=== PATIENT | male | born 1990 | race Caucasian/White ===

== ENCOUNTER 2020-08-31 03:53 | Emergency (ER) | payer MEDICAID, OTHER ==
[2020-08-31] MEDS ORDERED: KETOROLAC TROMETHAMINE INJ 30 MG/ML VIAL IV ONE (04:00)
[2020-08-31] MEDS ORDERED: SODIUM CHLORIDE 0.9% 1000ML 1,000 ML IVS ONE ×2 (04:01→06:00)
[2020-08-31] MEDS ORDERED: PROMETHAZINE HCL INJ 25 MG in SODIUM CHLORIDE 0.9% 50ML 50 ML IVPB ONE (04:01)
[2020-08-31] MEDS ORDERED: MORPHINE SULFATE INJ 10 MG/ML VIAL IV ONE ×3 (04:02→06:00)
--- NOTE | 2020-08-31 04:30 | RAD ---
EXAM: XR Abdomen, 1 View CLINICAL HISTORY: The patient is 29 years old and is Male; right flank pain TECHNIQUE: Single supine view of the abdomen/pelvis. COMPARISON: No relevant prior studies available. FINDINGS: Gastrointestinal tract: No dilated bowel loops. Organs: No definite calcifications in the region of the kidneys. Bones/joints: No acute fracture visualized. IMPRESSION: No acute findings in the abdomen and pelvis. Electronically signed by: Adry Marcos MD 08/31/2020 4:28 AM CDT
[2020-08-31] MEDS ORDERED: KCL 20MEQ/WATER FOR INJ 100ML 20 MEQ in PREMIX BAG 1 BAG IVPB ONE (04:55)
[2020-08-31] MEDS ORDERED: MAGNESIUM SULFATE PREMIX 2GM 2 GM in PREMIX BAG 1 BAG IVPB ONE (04:55)
[2020-08-31] MEDS ORDERED: POTASSIUM CHLORIDE ELIXIR 20 MEQ/15 ML UD PO ONE (04:55)
[2020-08-31] MEDS ORDERED: TAMSULOSIN 0.4 MG CAP PO ONE (04:56)
[2020-08-31] MEDS ORDERED: KCL 20 MEQ/NS 1,000 ML IVS ONE (06:01)
--- NOTE | 2020-08-31 06:25 | ED.PDOC ---
History of Present Illness - General Chief Complaint: Back Pain or Injury Stated Complaint: sharp lower back pain Time Seen by Provider: 08/31/20 03:59 Source: patient Exam Limitations: no limitations - History of Present Illness Initial Comments: The patient is a 29-year-old male presented to the emergency room secondary to abrupt onset right flank pain. Patient is unable to remain still. The pain is a 10 out of 10. It is causing him to vomit. The patient has had kidney stones in the past with a similar reaction but he reports this is more severe. The patient is diaphoretic. This started between 1/2-hour and 1 hour prior to arrival. He was reportedly feeling fine before that. Timing/Duration: 1 hour Severity: severe Improving Factors: nothing Worsening Factors: nothing Associated Symptoms: diaphoresis, loss of appetite, nausea/vomiting Allergies/Adverse Reactions: Allergies NO KNOWN ALLERGY Allergy (Verified 08/31/20 04:00) Review of Systems - Review of Systems Constitutional: States: malaise EENTM: States: no symptoms reported Respiratory: States: no symptoms reported Cardiology: States: no symptoms reported Gastrointestinal/Abdominal: States: abdominal pain, nausea, vomiting Genitourinary: States: frequency Musculoskeletal: States: back pain Skin: States: no symptoms reported Neurological: States: anxiety - Obvious distress Endocrine: States: excessive sweating All other Systems: No Change from Baseline Past Medical History (General) - Patient Medical History Hx Asthma: No Hx Hypertension: No Hx Diabetes: No Surgical History: tonsillectomy - Vaccination History Hx Tetanus, Diphtheria Vaccination: Yes Hx Influenza Vaccination: No Hx Pneumococcal Vaccination: No - Social History Hx Tobacco Use: Yes Hx Alcohol Use: No Family Medical History - Family History Mother Family History: Unknown Physical Exam - Physical Exam General Appearance: Alert, Anxious, Obvious distress Eye Exam: bilateral normal Ears, Nose, Throat: hearing grossly normal, normal pharynx Neck: full range of motion, supple Respiratory: lungs clear, normal breath sounds, no respiratory distress, no accessory muscle use Cardiovascular/Chest: normal peripheral pulses, regular rate, rhythm, no edema Peripheral Pulses: radial,right: 2+, radial,left: 2+ Gastrointestinal/Abdominal: non tender, soft Rectal Exam: deferred Back Exam: no CVA tenderness - The pain is deeper, no vertebral tenderness Extremity: normal range of motion, non-tender, normal inspection, no pedal edema, normal capillary refill Neurologic: auricular acupuncturist II-XII nml as tested, alert, oriented x 3, other - Obvious acute distress Skin Exam: diaphoresis Comments: Vital Signs - 24 hr 08/31/20 08/31/20 08/31/20 03:58 04:04 04:54 Temperature 97.2 F L Pulse Rate [ 62 62 left] Respiratory 22 22 18 Rate Blood Pressure 130/88 140/91 [Left Arm] O2 Sat by Pulse 100 99 Oximetry 08/31/20 08/31/20 05:00 06:00 Temperature Pulse Rate [ 53 L 72 left] Respiratory 16 18 Rate Blood Pressure 142/86 130/84 [Left Arm] O2 Sat by Pulse 98 97 Oximetry Progress - Progress Progress: 08/31/20 06:27 The patient is a 29-year-old male presented to emergency room secondary to acute onset right flank pain that is severe with associated vomiting and inability to remain still. Given his history of previous kidney stones, this is the most likely diagnosis. The patient received doses of IV fluids, nausea medications, a dose of Flomax and a dose of Toradol. He also received a dose of morphine. This did help the symptoms. Symptoms have however persisted and the patient is not yet been able to give a urinalysis. We are going to go ahead and proceed with a CT scan of abdomen pelvis without contrast. The patient has been found to have significantly low potassium levels. There are definable U waves on the EKG. The patient was unable to tolerate oral potassium so is receiving IV potassium. He is on a second liter of saline as well. He will need repeat potassium checks. He is also receiving a dose of magnesium for hypomagnesemia. The patient will likely require at least another 3 to 4 hours for correction of known processes above, possibly longer depending on what the CT scan shows and the patient's response. The patient will be followed by the oncoming ER physician. [email or web address] [phone] 08/31/20 06:53 CT scan abdomen pelvis without contrast shows a 4 mm stone at the right ureterovesicular junction with proximal hydroureter and mild hydronephrosis. - Results/Orders Results/Orders: EKG shows sinus bradycardia at 51 bpm. Mild right axis deviation. Normal R wave progression. No ST segment or T wave changes indicative of acute ischemia. The patient does have a more than normally pronounced U wave. Normal QT interval. Abdominal x-ray appears benign. Laboratory Tests 08/31/20 08/31/20 03:58 03:58 WBC 9.6 RBC 4.82 Hgb 14.7 Hct 41.2 L MCV 85.4 MCH 30.5 MCHC 35.6 RDW 12.8 Plt Count 292 MPV 8.2 Absolute Neuts (auto) 4.10 Absolute Lymphs (auto) 4.60 H Absolute Monos (auto) 0.70 Absolute Eos (auto) 0.10 Absolute Basos (auto) 0.00 Neutrophils % 42.6 Lymphocytes % 48.2 Monocytes % 7.3 Eosinophils % 1.6 Basophils % 0.3 Sodium 141 Potassium 2.6 L Chloride 101 Carbon Dioxide 26 Anion Gap 16.6 BUN 16 Creatinine 1.05 BUN/Creatinine Ratio 15.2 Random Glucose 146 H Serum Osmolality 285.1 Calcium 9.6 Magnesium 1.7 L Total Bilirubin 1.1 H AST 26 ALT 25 Alkaline Phosphatase 55 Creatine Kinase 100 CK-MB (CK-2) 1.4 CK-MB (CK-2) % Not Reportable Troponin I < 0.02 Serum Total Protein 7.4 Albumin 5.2 Globulin 2.2 L Albumin/Globulin Ratio 2.4 H Amylase 74 Lipase 42 Departure - Departure Clinical Impression: Flank pain, Hypokalemia, Nausea and vomiting Disposition: Discharge to Home or Self Care Condition: Fair Departure Forms: ED Discharge - Pt. Copy, Patient Portal Self Enrollment Instructions: DI for Low Back Pain Diet: bland diet
--- NOTE | 2020-08-31 06:42 | CT ---
EXAM DESCRIPTION: Abdoment/Pelvis w/o Contrast CLINICAL HISTORY: 29 years Male acute onset rt flank pain COMPARISON: None. TECHNIQUE: Contiguous axial images obtained through the abdomen and pelvis without IV contrast. Reformatted images obtained. This exam was performed according to our department optimization program which includes automated exposure control, adjustment of the mA and/or kv according to patient size and/or use of iterative reconstruction technique. FINDINGS: The liver appears unremarkable. The gallbladder is normal. The spleen and pancreas appear unremarkable. No adrenal masses. There are scattered renal stones in the kidneys bilaterally measuring up to 4 mm. There is a 4 mm stone in the region of the right UVJ. There is right hydroureteronephrosis and right perinephric stranding. No bowel obstruction. The appendix is unremarkable. No aneurysmal dilatation of the aorta. IMPRESSION: 4 mm right UVJ stone with associated hydroureteronephrosis and perinephric stranding. Electronically signed by: Azar Brown MD 08/31/2020 6:40 AM CDT
[2020-08-31] MEDS ORDERED: ONDANSETRON INJ 4 MG/2 ML VIAL IV ONE (06:58)
[2020-08-31] MEDS ORDERED: ONDANSETRON INJ 4 MG/2 ML VIAL ONE (06:58)
[2020-08-31] MEDS ORDERED: POTASSIUM CHLORIDE 20 MEQ TAB PO ONE (07:35)
[2020-08-31] MEDS ORDERED: HYDROmorphone HCL INJ 2 MG/ML VIAL IV ONE (07:35)
[2020-08-31] MEDS ORDERED: HYDROcodone 5MG/APAP 325MG 1 EA TAB PO ONE (08:39)
[2020-08-31 08:47] VITALS: BP 124/82; TEMP 99.1; O2SAT 97
== END 2020-08-31 08:48 | disposition home or self-care (01) ==
LOC: ER 03:53
DX: R10.9 Unspecified abdominal pain (principal); E87.6 Hypokalemia; R11.2 Nausea with vomiting, unspecified; N13.2 Hydronephrosis with renal and ureteral calculous obstruction; R00.1 Bradycardia, unspecified; Z87.442 Personal history of urinary calculi; Z87.891 Personal history of nicotine dependence
CPT/HCPCS: 36415; 74018; 74176; 80053; 81001; 82150; 82550; 82553; 83690; 83735; 84132; 84484; 85025; 93005; A4216; J1170; J1885; J2270; J2405; J2550; J3475; J3480; J7030